=== PATIENT | female | born 1980 | race Caucasian/White ===

== ENCOUNTER 2020-10-02 16:00 | Emergency (ER) | payer OTHER, SELFPAY ==
[2020-10-02 16:15] VITALS: BP 118/69; PULSE 117; RESP 17; TEMP 38.1; O2SAT 100
--- NOTE | 2020-10-02 16:18 | ED.NAVMDI ---
HPI - Nausea/Vomiting/Diarrhea General Chief complaint: Upper Respiratory Infection Stated complaint: Vomiting,chills Time Seen by Provider: 10/02/20 17:10 Source: patient and RN notes reviewed Mode of arrival: ambulatory Limitations: no limitations History of Present Illness HPI Narrative: 39-year-old female presents with concern for nasal congestion, rhinorrhea, sore throat, low-grade fever, vomiting, itchy eyes. Reports her nephew was diagnosed with strep and Covid. Denies intervention. Reports she was sent home from work today for having a low-grade fever. MD elicited complaint: vomiting Related Data Allergies Allergy/AdvReac Type Severity Reaction Status Date / Time No Known Allergies Allergy Uncoded 02/22/19 19:59 Review of Systems Review of Systems: Narrative: CONSTITUTIONAL: Denies malaise, sweats. Reports fever and chills EYES: Denies visual changes, redness, or discharge. Reports that she denies ENT: Reports rhinorrhea, congestion, sore throat. Denies sinus pain, otalgia CARDIOVASCULAR: Denies chest pain, palpitations, or edema. RESPIRATORY: Denies cough or dyspnea. GASTROINTESTINAL: Denies abdominal pain, nausea, diarrhea, bloody, or mucous stools. Reports vomiting GENITOURINARY: Denies dysuria or hematuria. SKIN: Denies rash or itching. MUSCULOSKELETAL: Denies back pain, joint pain, or myalgia. NEUROLOGIC: Denies numbness, weakness, or headache. PSYCHIATRIC: Denies anxiety or depression. All systems reviewed & are unremarkable except as noted in HPI and below PMFSH Comments At time of signature, agree with nursing past medical, surgical, social and family history. There is no relevant family history pertinent to the presenting complaint Exam Narrative: Exam Narrative: GENERAL: Well-appearing, well-nourished, and in no acute distress. HEAD: Normocephalic EYES: PERRLA, conjunctivae clear ENT: Nares clear, turbinates erythematous, clear discharge. Mucous membranes moist. TM pearly lopez with sharp light reflex bilaterally; no tragal tenderness. Oropharynx not erythematous without lesions. Tonsils not enlarged and without exudate, no drooling, no hoarseness, no trismus, uvula midline. NECK: Supple. No lymphadenopathy CHEST: Clear to auscultation, breath sounds equal. No wheezing, rhonchi, rales, or stridor. No respiratory distress, speaks in full sentences. HEART: Regular rate and rhythm. No murmur heard. SKIN: Warm, dry, no rash. NEURO: Alert and oriented x3. PSYCH: Normal mood and affect Course Course Emergency Course: Patient is aware of diagnosis, understands and agrees to treatment plan. Anticipatory guidance given. Patient agrees to follow-up as directed and is aware of reasons to seek care at the emergency department. Portions of this record may have been created with voice recognition software Vital Signs Vital signs: Vital Signs Temperature 100.5 F H 10/02/20 16:15 Pulse Rate 117 H 10/02/20 16:15 Respiratory Rate 17 10/02/20 16:15 Blood Pressure 118/69 10/02/20 16:15 Pulse Oximetry 100 10/02/20 16:15 Temperature 100.5 F H 10/02/20 16:15 Pulse Rate 117 H 10/02/20 16:15 Respiratory Rate 17 10/02/20 16:15 Blood Pressure 118/69 10/02/20 16:15 Pulse Oximetry 100 10/02/20 16:15 Reviewed. MDM - Nausea/Vomiting/Diarrhea MDM Narrative Medical decision making narrative: Differential diagnosis considered: Clancy virus, strep pharyngitis, allergic rhinitis, upper respiratory tract infection, sinusitis, rhinosinusitis, nasopharyngitis. viral pharyngitis, otitis media, otitis externa, pneumonia, bronchitis, viral cough syndrome, viral syndrome, and influenza. Exam findings show no acute concerns or changes; patient is non-toxic appearing and is in no distress. Patient is appropriate for outpatient treatment and follow-up. Lab Data Attestation: I reviewed the patient's lab results. Labs: Strep Screen Presumptive Negative *(R
[2020-10-03 19:24] LABS: SARS-CoV-2 RNA PCR Negative
== END 2020-10-02 17:26 | disposition home or self-care (01) ==
PROVIDERS: Emergency Provider Nurse Practitioner; PCP Family Medicine
DX: J06.9 Acute upper respiratory infection, unspecified (principal); Z20.822 Contact with and (suspected) exposure to COVID-19
CPT/HCPCS: 87081; 87880; 99213; C9803; G0463; U0003; U0005

== ENCOUNTER 2022-03-27 13:40 | Outpatient (CLI) | payer OTHER, SELFPAY ==
--- NOTE | ~2022-03-27 | MMUS_ITS ---
EXAMINATION: MM diagnostic anne BI w poncho, US breast RT complete HISTORY: Multiple prior benign biopsies. Fibroadenomatous change. TECHNIQUE: Additional 3-D tomosynthesis images of the breasts were performed and synthetic 2-D images were generated. CAD analysis was submitted and interpreted. High resolution right complete breast ul trasound was performed. COMPARISON: Comparison to multiple prior studies sequentially, with oldest reviewed study dated 02/22. BREAST PARENCHYMAL COMPOSITION: The breasts are heterogeneously dense, which may obscure small masses FINDINGS: MAMMOGRAPHIC FINDINGS: The left breast is stable without evidence for malignancy. There is a tissue marker at the 12:00 posi tion of the left breast from prior benign biopsy. There are multiple masses in the right breast which are partially obscured by fibroglandular tissue. There are tissue markers along the margins of the m ass in the 6:00 position of the right breast posteriorly as well as 2 masses at the 10:00 position of the right breast with adjacent tissue markers. The medial mass at 10:00 has increased in size compar ed with prior study. ULTRASOUND: Complete right breast US of all 4 quadrants of the breasts and retroareolar region was reviewed. At 6 :00, 3 cm from the nipple, there is an oval hypoechoic mass measuring 1.8 x 1.5 x 2 cm compared with 2.1 x 1.6 x 1.3 cm on prior examination. No significant interval change. At 9:00, 4 cm from the nippl e there is an oval circumscribed hypoechoic mass with parallel orientation, posterior acoustic enhanc ement and no internal vascularity measuring 1.5 x 1.2 x 0.6 cm compared with 1.6 x 1.4 x 1.1 cm on pr ior examination. At 10:00, 6 cm from the nipple there is an antiparallel hypoechoic mass measuring 1. 9 x 1.7 x 2 cm compared with 1.4 x 1 x 1.2 cm on prior examination. This mass has increased in size s feliciano prior examination. Repeat biopsy is recommended. IMPRESSION: 1. Enlarging right breast mass at 10:00, 6 cm from the nipple measuring 2 x 1.9 x 1.7 cm. 2. Ultrasound-guided right breast biopsy recommended. BI-RADS category 4, suspicious findings. Reviewed, dictated and finalized at location A. IMPRESSION: 1. Enlarging right breast mass at 10:00, 6 cm from the nipple measuring 2 x 1.9 x 1.7 cm. 2. Ultrasound-guided right breast biopsy recommended. BI-RADS category 4, suspicious findings.
== END 2022-03-27 13:41 | disposition home or self-care (01) ==
PROVIDERS: PCP Family Medicine
DX: Z91.89 Other specified personal risk factors, not elsewhere classified (principal); R92.8 Other abnormal and inconclusive findings on diagnostic imaging of breast
CPT/HCPCS: 76641; 77062; 77066; G0279

== ENCOUNTER 2022-04-20 08:41 | Outpatient (CLI) | payer OTHER, SELFPAY ==
--- NOTE | ~2022-04-20 | US_ITS ---
EXAMINATION: US breast RT limited HISTORY: Patient presents for biopsy of a right breast mass. TECHNIQUE: Limited right breast ultrasound is performed. COMPARISON: 03/27/2022, 03/28/2019, 03/15/2019 FINDINGS: Current images were reviewed in conjunction with prior diagnostic mammograms. Patient is un dergone three previous right breast biopsies including a mass at this location which was previously d emonstrated to be a fibroadenoma. Given the previous biopsy and minimal interval change in the interv al since biopsy, decision was made to follow-up rather than biopsy. IMPRESSION: Right breast mass, previously characterized as a fibroadenoma by biopsy, with minimal interval change in three years, probably benign. Follow-up targeted right breast ultrasound six months is recommende d. BI-RADS category 3, probably benign findings. Reviewed, dictated and finalized at location A. ER LOADER IMPRESSION: Right breast mass, previously characterized as a fibroadenoma by biopsy, with m inimal interval change in three years, probably benign. Follow-up targeted righ t breast ultrasound six months is recommended. BI-RADS category 3, probably benign findings.
== END 2022-04-20 08:42 | disposition home or self-care (01) ==
PROVIDERS: PCP Family Medicine
DX: R92.8 Other abnormal and inconclusive findings on diagnostic imaging of breast (principal)
CPT/HCPCS: 76642

== ENCOUNTER 2024-11-06 14:28 | Emergency (ER) | payer MEDICAID, SELFPAY ==
[2024-11-06 14:46] VITALS: BP 118/75; PULSE 84; RESP 16; TEMP 36.5; O2SAT 100
--- NOTE | 2024-11-06 15:17 | ED_ITS ---
HPI - Ear Problem General Chief complaint: Ear Stated complaint: Ears Irritation Source: patient Mode of arrival: ambulatory Limitations: no limitations History of Present Illness HPI Narrative: Patient is a 43-year-old female who presents to the clinic with left ear pain x 2 months. She states she was seen at urgent care a month ago and was given antibiotics and steroids. She states that has helped her some, but has not total relief. She has not been taking anything [id number]. She states her pain is 5/10. Denies any hearing loss. Related Data Home Medications ?Medication ?Instructions ?Recorded ?Confirmed ?Last Taken ?Type tobramycin 0.3 %-dexamethasone 0.1 drp 11/06/24 Unknown History % eye drops,suspension Allergies Allergy/AdvReac Type Severity Reaction Status Date / Time No Known Allergies Allergy Other Uncoded 11/06/24 14:46 Review of Systems Review of Systems: CONSTITUTIONAL: Denies malaise, chills, ?or fever. EYES: Denies visual changes, redness, or discharge. ENT: Denies rhinorrhea, congestion, sinus pain, and sore throat. ?Reports right ear pain. CARDIOVASCULAR: Denies chest pain, palpitations, or edema. RESPIRATORY: Denies cough or dyspnea. GASTROINTESTINAL: Denies abdominal pain, nausea, vomiting, diarrhea SKIN: Denies rash or itching. MUSCULOSKELETAL: Denies myalgia. NEUROLOGIC: Denies headache. All systems reviewed & are unremarkable except as noted in HPI and below PMFSH Social History Social History Gender identity (if verbalized by the patient): Female Comments At time of signature, I have reviewed and agree with nursing past medical, surgical, social and family history unless otherwise noted. Please see nursing chart for further information. There is no relevant family history pertinent to the presenting complaint. Exam Narrative: GENERAL: Well-appearing, well-nourished, and in no acute distress. HEAD: Normocephalic EYES: PERRLA, conjunctivae clear ENT: Nares clear. Mucous membranes moist. ?Bilateral TM's bulging with clear fluid and intact. No signs of erythema; canal not erythematous, no drainage, no tragal tenderness. Oropharynx not erythematous without lesions. ?no drooling, no hoarseness, no trismus, uvula midline. NECK: Supple. No lymphadenopathy CHEST: Clear to auscultation, breath sounds equal. No wheezing, rhonchi, rales, or stridor. No respiratory distress, speaks in full sentences. HEART: Regular rate and rhythm. No murmur heard. SKIN: Warm, dry, no rash. NEURO: Alert and oriented x3. PSYCH: Normal mood and affect. Course Course Level of Care: Express Care Visit Vital Signs Vital signs: Vital Signs Temperature 97.7 F 11/06/24 14:46 Pulse Rate 84 11/06/24 14:46 Respiratory Rate 11/06/24 14:46 Blood Pressure 118/75 11/06/24 14:46 Pulse Oximetry 100 11/06/24 14:46 Oxygen Delivery Room Air 11/06/24 14:46 Temperature 97.7 F 11/06/24 14:46 Pulse Rate 84 11/06/24 14:46 Respiratory Rate 11/06/24 14:46 Blood Pressure 118/75 11/06/24 14:46 Pulse Oximetry 100 11/06/24 14:46 Oxygen Delivery Room Air 11/06/24 14:46 Reviewed Medical Decision Making MDM Narrative Medical decision making narrative: Discussed physical exam findings. Patient has no signs of infection. Recommend over the counter medication and to follow up with ENT. Advised supportive measures and signs/symptoms to go to the ER. Pt is appropriate for outpatient treatment and follow up. Differential Diagnosis Differential Diagnosis: otitis externa, TM rupture, cholesteatoma, foreign body, auricular perichondritis, otitis media, bullous myringitis, mastoiditis, eustachian tube dysfunction Vital Signs Vital Signs: Vital Signs Temperature 97.7 F 11/06/24 14:46 Pulse Rate 11/06/24 14:46 Respiratory Rate 11/06/24 14:46 Blood Pressure 118/75 11/06/24 14:46 Pulse Oximetry 100 11/06/24 14:46 Oxygen Delivery Room Air 11/06/24 14:46 Temperature 97.7 F 11/06/24 14:46 Pulse Rate 84 11/06/24 14:46 Respiratory Rate 11/06/24 14:46 Blood Pressure 118/75 11/06/24 14:46 Pulse Oximetry 100 11/06/24 14:46 Oxygen Delivery Room Air 11/06/24 14:46 Critical Care Time Critical Care Time Critical Care Time: No Discharge Plan Discharge Clinical Impression: Acute ear pain Patient Disposition: Home Condition: Stable Instructions: Earache (ED) Additional Instructions: Recommend Flonase spray and Zyrtec (or Claritin/Samreen) Tylenol 1000mg every 8 hours as needed for pain. Symptomatic treatment includes: rest, fluids, and increase humidity of the air at home. Follow up with your primary care provider in 1 week. Go to the ER for worsening symptoms or concerns. Patient Language: Spanish Prescriptions: No Action ipratropium bromide 0.03 % spray,non-aerosol 2 spray NASAL TID PRN (Reason: nasal drainage) Qty: 30 0RF Rx Instructions: administer into each nostril tobramycin-dexamethasone 0.3-0.1 % drops,suspension Follow-up/Referrals: Brandon,Tess Coe MACHINE [employer] TRIMMER [Primary Care Provider] - Time of Disposition: 15:19
== END 2024-11-06 15:20 | disposition home or self-care (01) ==
PROVIDERS: PCP Nurse Practitioner Family
DX: H92.02 Otalgia, left ear (principal)
CPT/HCPCS: 99211; G0463